=== PATIENT | male | born 1970 ===

== ENCOUNTER 2017-02-27 11:50 | Emergency (ER) | payer OTHER ==
[2017-02-27] MEDS ORDERED: Midazolam 2 MG/2 ML VIAL ONE (12:42)
[2017-02-27] MEDS ORDERED: Midazolam 2 MG/2 ML VIAL IVP ONE (13:51)
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
--- NOTE | 2017-02-27 14:58 | RAD ---
PROCEDURE: Radiographs of the Right Shoulder HISTORY: post-reduction COMPARISON: Comparison is made to the previous same-day exam. FINDINGS: BONES: No overt fracture noted. JOINTS: The right glenohumeral joint is located SOFT TISSUES: Normal. OTHER FINDINGS: None. IMPRESSION: The right glenohumeral joint is located.
[2017-02-27 16:06] VITALS: BP 133/87; PULSE 76; RESP 16; TEMP 98.6
[2017-02-27 18:24] VITALS: O2SAT 96
== END 2017-02-27 16:46 | disposition home or self-care (01) ==
LOC: C.ER 11:50
DX: S43.084A Other dislocation of right shoulder joint, initial encounter (principal); Y08.89XA Assault by other specified means, initial encounter
CPT/HCPCS: 23650; 73030; 99285; J2250; J3010